=== PATIENT | male | born 1975 | race Caucasian/White ===

== ENCOUNTER 2021-03-13 19:48 | Emergency (ER) | payer MEDICARE ==
[~2021-03-13 19:48] MED LIST: BACTROBAN OINT22 GM EXT; IBUPROFEN600 MG PO; KEFLEX500 MG PO
== END 2021-03-13 20:36 | disposition left against medical advice (07) ==
LOC: ER1 19:48
DX: Z53.21 Procedure and treatment not carried out due to patient leaving prior to being seen by health care provider (principal)

== ENCOUNTER 2021-04-16 01:00 | Emergency (ER) | payer MEDICARE ==
[2021-04-16 01:43] LABS: HEMOGLOBIN 15.4 gm/dl (14.0-17.5); RED BLOOD COUNT 5.5 M/UL (4.20-5.50); WHITE BLOOD COUNT 5.3 K/UL (4.5-11.0)
[2021-04-16 02:18] LABS: BUN/CREATININE RATIO 15 (0-10)
[2021-04-16] MEDS ORDERED: VENTOLIN HFA 66.7 GM INH (02:54)
[2021-04-16] MEDS ORDERED: DECADRON6 MG PO (02:54)
[2021-04-16] MEDS ORDERED: LODINE CAP 300300 MG PO (02:54)
== END 2021-04-16 03:00 | disposition home or self-care (01) ==
LOC: ER1 01:00
PROVIDERS: Physician Assistant
DX: U07.1 COVID-19 (principal); F17.210 Nicotine dependence, cigarettes, uncomplicated; Z88.0 Allergy status to penicillin
CPT/HCPCS: 71045; 80053; 82550; 82553; 83874; 83880; 84484; 85025; 99285

== ENCOUNTER 2021-08-15 00:52 | Emergency (ER) | payer MEDICARE ==
[~2021-08-15 00:52] MED LIST changes: +DECADRON6 MG PO; +LODINE CAP 300300 MG PO; +VENTOLIN HFA 66.7 GM INH
[2021-08-15 01:47] LABS: HEMOGLOBIN 17.3 gm/dl (14.0-17.5); RED BLOOD COUNT 5.87 M/UL (4.20-5.50); WHITE BLOOD COUNT 12.7 K/UL (4.5-11.0)
[2021-08-15 02:23] LABS: BUN/CREATININE RATIO 16 (0-10)
[2021-08-15] MEDS ORDERED: ONDANSETRON ODT4 MG SL (03:44)
[2021-08-15] MEDS ORDERED: PROTONIX 40 MG40 M1 PO (03:44)
== END 2021-08-15 04:10 | disposition home or self-care (01) ==
LOC: ER1 00:52
PROVIDERS: Physician Assistant
DX: N32.89 Other specified disorders of bladder (principal); J44.9 Chronic obstructive pulmonary disease, unspecified; R10.11 Right upper quadrant pain; R10.31 Right lower quadrant pain; R11.2 Nausea with vomiting, unspecified; Z87.442 Personal history of urinary calculi; Z88.0 Allergy status to penicillin; Z88.2 Allergy status to sulfonamides
CPT/HCPCS: 80053; 81001; 83690; 85025; 96374; 96375; 99284; J1885; J2270; J2405; Q9967

== ENCOUNTER 2021-11-07 21:52 | Emergency (ER) | payer MEDICARE ==
[~2021-11-07 21:52] MED LIST changes: +ONDANSETRON ODT4 MG SL; +PROTONIX 40 MG40 M1 PO
[2021-11-07 22:17] LABS: HEMOGLOBIN 15.8 gm/dl (14.0-17.5); RED BLOOD COUNT 5.38 M/UL (4.20-5.50)
[2021-11-07 22:29] LABS: BUN/CREATININE RATIO 16 (0-10)
[2021-11-09] MEDS ORDERED: VISTARIL50 MG PO (14:10)
[2021-11-09] MEDS ORDERED: MEDROL DOSEPAK 24 MG PO (14:10)
[2021-11-09] MEDS ORDERED: PEPCID40 MG PO (14:10)
[2021-11-11] MEDS ORDERED: DOXYCYCLINE HY100 MG PO (17:36)
[2021-11-11] MEDS ORDERED: MEDROL DOSEPAK 24 MG PO (17:36)
[2021-11-11] MEDS ORDERED: HYDROCODON-ACE1 EAC2 PO (17:36)
== END 2021-11-08 01:25 | disposition home or self-care (01) ==
LOC: ER1 21:52
PROVIDERS: Student in an Organized Health Care Education/Training Program
DX: S01.01XA Laceration without foreign body of scalp, initial encounter (principal); Z23 Encounter for immunization; F17.200 Nicotine dependence, unspecified, uncomplicated; W11.XXXA Fall on and from ladder, initial encounter; Y92.009 Unspecified place in unspecified non-institutional (private) residence as the place of occurrence of the external cause
CPT/HCPCS: 12002; 70450; 71045; 72125; 72128; 72131; 72170; 80048; 85025; 90471; 90715; 93005; 99284

== ENCOUNTER 2021-11-09 10:55 | Emergency (ER) | payer MEDICARE ==
[2021-11-09] MEDS ORDERED: VISTARIL50 MG PO (14:10)
[2021-11-09] MEDS ORDERED: PEPCID40 MG PO (14:10)
[2021-11-09] MEDS ORDERED: MEDROL DOSEPAK 24 MG PO (14:10)
[2021-11-11] MEDS ORDERED: HYDROCODON-ACE1 EAC2 PO (17:36)
[2021-11-11] MEDS ORDERED: DOXYCYCLINE HY100 MG PO (17:36)
[2021-11-11] MEDS ORDERED: MEDROL DOSEPAK 24 MG PO (17:36)
== END 2021-11-09 14:25 | disposition home or self-care (01) ==
LOC: ER1 10:55
DX: S30.862A Insect bite (nonvenomous) of penis, initial encounter (principal); F17.210 Nicotine dependence, cigarettes, uncomplicated; Z88.0 Allergy status to penicillin; Z88.8 Allergy status to other drugs, medicaments and biological substances; W57.XXXA Bitten or stung by nonvenomous insect and other nonvenomous arthropods, initial encounter
CPT/HCPCS: 96374; 99282; J2930; Q0177

== ENCOUNTER 2021-11-24 08:09 | Emergency (ER) | payer MEDICARE ==
[~2021-11-24 08:09] MED LIST changes: +DOXYCYCLINE HY100 MG PO; +HYDROCODON-ACE1 EAC2 PO; +MEDROL DOSEPAK 24 MG PO; +PEPCID40 MG PO; +VISTARIL50 MG PO
== END 2021-11-24 08:59 | disposition home or self-care (01) ==
LOC: ER1 08:09
DX: S01.01XD Laceration without foreign body of scalp, subsequent encounter (principal); F17.200 Nicotine dependence, unspecified, uncomplicated; X58.XXXD Exposure to other specified factors, subsequent encounter
CPT/HCPCS: 99281